=== PATIENT | female | born 1975 | race African-American/Black ===

== ENCOUNTER → 2021-09-28 10:00 | Outpatient (BNVA) | payer OTHER, SELFPAY | PROVIDERS: Visit Provider Internal Medicine Cardiovascular Disease ==

== ENCOUNTER → 2021-10-04 09:26 | Outpatient (REF) | payer OTHER, SELFPAY ==
--- NOTE | 2021-10-04 09:40 | CA_ITS ---
Acquisition Time: 2021-10-04 09:49:11 Total Exercise Time: 00:06:18 Test Indications: CHEST PAIN Medications: PROPANOLOL NORVASC Protocol: LISY Max HR: 166 BPM 95% of Pred: 174 BPM Max BP: 144/080 mmHG Max Work Load: 7.4 METS Exercise stress test with exercise 6 min 18 sec of Lisy protocol, with mild sob, no chest discomfort, with artifact during exercise with no noted arrythmia, with normotensive response to exercise, without EKG changes meeting criteria for ischemia. Test reviewed with Dr Morales. Referred By: Hu Morales Overread By: PAULA DOTSON
== END ==
LOC: HO.CARD 09:26
PROVIDERS: PCP Internal Medicine; Visit Provider Internal Medicine Cardiovascular Disease
DX: R07.9 Chest pain, unspecified (principal)
CPT/HCPCS: 93017

== ENCOUNTER → 2021-12-28 09:29 | Outpatient (REF) | payer OTHER, SELFPAY ==
--- NOTE | 2021-12-28 09:32 | CA_ITS ---
Transthoracic Echocardiogram Patient (Last, First, Middle): Dahiana Arevalo, Gender: Female Date of : 1975 Age: 46 Procedure Date: 12/28/2021 Procedure Type: Transthoracic Echocardiogram Location: OP Height: 157.48 cm Weight: 90.27 kg BSA: 1.91 m2 Heart Rate: bpm BP: 112 / 62 mmHg Mill Turner: Referring MD: Hu Morales MD Deputy General Counsel: Hu Morales MD Symptoms: R07.9 - Chest pain, unspecified Study Quality: Technically limited study with off axis apical vie ECG Rhythm: Sinus Conclusions: - Technically borderline study but overall within normal limits Findings Left Ventricle Normal left ventricular size, thickness, and systolic function. The visually estimated ejection fraction is between 60-65%. Diastolic function is indeterminate on the basis of available data. Right Ventricle Normal right ventricular cavity size and systolic function. Atria The left atrium is normal in size. There is no evidence of interatrial shunt. The right atrium was not well visualized. Aortic Valve Normal aortic valve structure and function. There is no aortic valve stenosis. There is no aortic valve regurgitation. Mitral Valve Normal mitral valve structure and function. There is trace mitral valve regurgitation. There is no mitral valve stenosis. Pulmonic Valve The pulmonic valve was not well visualized. Tricuspid Valve Likely normal tricuspid valve structure and function. There is trace tricuspid valve regurgitation. The right ventricular systolic pressure is normal. The right ventricular systolic pressure is 23 mmHg. Normal right atrial pressure. There is no evidence of pulmonary hypertension. Great Vessels All visible segments of the aorta are normal in size. The pulmonary artery was not well visualized. Venous The inferior vena cava is normal in size and collapses greater than 50% with inspiration. Pericardium/Pleural There is no evidence of pericardial effusion. Prior Study Comparison No prior study available for comparison. Measurements 2D Linear Measurements IVSd: 0.90 0.6-0.9/0.6-1.0 cm LVIDd: 4.55 3.9-5.3/4.2-5.9 cm LVIDd Index: 2.38 2.4-3.2/2.2-3.1 cm/m2 LVIDs: 3.08 2.0-3.6 cm LVPWd: 0.90 0.7-1.1 cm LA Diam: 3.70 2.7-3.8/3.0-4.0 cm LAIDs Index: 1.94 1.5-2.3 cm/m2 LV Mass: 168.70 67-162/88-224 g LV Mass Index: 88.33 43-95/49-115 g/m2 LVOT Diam: 2.00 3.0+(-)1.3 cm Mitral Valve MV Pk E: 0.52 MV PK A: 0.55 MV Decel Time: 170.00 E/A: 0.90 E'Lateral: 6.64 E'Medial: 5.33 E/E' Med: 9.80 E/E' Lat: 7.90 PHT: 50.00 MVA PHT: 4.40 Decel [place]: 3.07 Aortic Valve AoV Pk Isaac: 0.99 AoV Mn Isaac: 0.73 AoV VTI: 0.21 AoV Pk Grad: 4.00 Aov Mn Grad: 2.00 NELLY Cont.VTI: 1.85 LVOT LVOT Pk Isaac: 0.56 LVOT Mn Isaac: 0.37 LVOT VTI: 0.12 LVOT Pk Grad: 1.00 LVOT Mn Grad: 1.00 LVOT Diam: 2.00 LVOT Area: 3.14 Diastolic Function MV Pk E: 0.52 MV Pk A: 0.55 E/A: 0.90 E'Medial: 5.33 E/E' Med: 9.80 E' Laterial: 6.64 E/E' Lat: 7.90 Tricuspid Valve TR Pk Isaac: 2.24 TR Pk Grad: 20.00 RA Press: 3.00 RVSP: 23.00 Great Vessels Aorta Ao Asc: 2.80 2.1-3.4 cm Pulmonary Valve PV Pk Isaac: 1.00 Peak PV Grad: 4.00 Updated in Other Vendor System with Status of Final Hu Morales MD electronically signed on 12/28/2021 9:12:28 PM with status of Final
== END ==
LOC: HO.CARD 09:29
PROVIDERS: Visit Provider Internal Medicine Cardiovascular Disease
DX: R07.9 Chest pain, unspecified (principal); G47.33 Obstructive sleep apnea (adult) (pediatric)
CPT/HCPCS: 93306

== ENCOUNTER → 2022-02-14 15:28 | Outpatient (BNVA) | payer OTHER, SELFPAY | PROVIDERS: PCP Internal Medicine; Referring Provider Internal Medicine; Visit Provider Internal Medicine Cardiovascular Disease | DX: Z13.89 Encounter for screening for other disorder (principal) ==

== ENCOUNTER → 2023-05-29 16:11 | Outpatient (BNVA) | payer OTHER, SELFPAY | PROVIDERS: Visit Provider Physician Assistant ==

== ENCOUNTER 2023-05-29 17:23 | Emergency (ER) | payer OTHER, SELFPAY ==
--- NOTE | 2023-05-29 18:11 | ED_ITS ---
HPI - General Adult General Chief complaint: General Medical Stated complaint: high bp/sent from general surgery Time Seen by Provider: 05/29/23 18:11 Source: patient Mode of arrival: ambulatory Limitations: no limitations History of Present Illness HPI narrative: Patient with history of sleep apnea obesity came to the weight loss clinic and notice a blood pressure 203/101 patient denies any history of hypertension the past. Patient has gained about 10 lb in last 1 year does have sleep apnea history but not using machine. On arrival recheck blood pressure was 167/78 Related Data Home Medications Medication Instructions Recorded Confirmed cetirizine 10 mg tablet 10 mg PO DAILY 09/28/21 02/14/22 fluticasone propionate 50 spray intranasal 09/28/21 02/14/22 mcg/actuation nasal spray,suspension ibuprofen 600 mg tablet 600 mg PO TID 09/28/21 02/14/22 sumatriptan succinate 25 mg tablet mg PO 09/28/21 02/14/22 verapamil 120 mg tablet,extended 120 mg PO BEDTIME 05/29/23 05/29/23 release Allergies Allergy/AdvReac Type Severity Reaction Status Date / Time No Known Allergies Allergy Verified 05/29/23 18:24 Review of Systems Review of Systems: Yes all other systems are reviewed and are negative [facility] Past Medical History Medical History Obesity Obstructive sleep apnea Surgical History Hx of breast reduction, elective Hx of knee surgery Family History Family History Father Stroke Mother Breast cancer Social History Social History Alcohol intake: current Alcohol intake frequency: holidays/special occasions only Patient Tobacco Use Status: Never used Tobacco Smoked in Last 30 Days: No Use of substances other than those prescribed or required for medical reasons: No Advance Directives: No Advance Directives Information Provided: No Patient : No Physical Exam ED Vital Signs: Vital Signs - 24 hr 05/29/23 18:12 05/29/23 19:22 Temperature 98.4 F Pulse Rate 90 Respiratory Rate 16 Blood Pressure 167/78 H 157/71 H Pulse Oximetry 100 Oxygen Delivery Method Room Air BMI result Body Mass Index 42.8 Appearance: Alert. Oriented X3. No acute distress. Eyes: PERRLA, ENT: Pharynx normal. Oral Mucosa moist Neck: Normal inspection. Neck supple. CVS: Normal heart rate and rhythm. Pulses normal. Respiratory: No respiratory distress. Equal air entry bilateral, no wheezing/rales/rhonchi Abdomen: Soft and nontender. Bowel sounds are present, no mass palpable, no CVA tenderness Skin: Skin warm and dry. Normal skin color. Normal skin turgor. Extremities: No lower extremity edema. No calf tenderness Neuro: Oriented X 3. No motor deficit. No sensory deficit.No cerebellar signs , cranial nerves II-XII intact Medical Decision Making Medical Decision Making MDM Narrative: Patient with tansient mild hypertension with ANTOINE not using CPAP machine likely the cause for hypertension patient advised to follow with her PCP to have CPAP machine and sleep studies and try to reduce weight and decrease salt intake and keep an eye on her blood pressure should be less than 140/90 Lab Data MDM Lab Attestation statement: I reviewed the patient's lab results. 05/29/23 18:37 05/29/23 18:37 Labs: Lab Results 05/29/23 05/29/23 Range/Units 18:37 18:37 WBC 4.7 L (4.8-10.8) X10*3/uL RBC 4.23 (4.20-5.50) X10*6/uL Hgb 12.6 (12.0-16.0) g/dl Hct 39.3 (37.0-47.0) % MCV 92.9 (80.0-98.0) fL MCH 29.8 (27.0-33.0) pg MCHC 32.1 (31.0-35.0) g/dl RDW 12.7 (11.0-16.0) % Plt Count 251 (160-400) X10*3/uL MPV 10.1 (9.4-12.3) fL Immature Gran % (Auto) 0.2 (0.0-0.4) % Neut % (Auto) 53.0 (45-73) % Lymph % (Auto) 35.2 (20-40) % [place] % (Auto) 8.3 (2-11) % Eos % (Auto) 2.5 (0-4) % Baso % (Auto) 0.8 (0-2) % Lymph # (Auto) 1.7 (1.2-4.9) X10*3/uL [place] # (Auto) 0.4 (0.1-1.2) X10*3/uL Eos # (Auto) 0.1 (0.0-0.4) X10*3/uL Baso # (Auto) 0.0 (0.0-0.2) X10*3/uL Abs Immat Gran (auto) 0.01 (0.00-0.03) X10*3/uL Absolute Neuts (auto) 2.5 (2.0-8.3) x10*3/uL Absolute Nucleated RBC 0.000 (0.0-0.012) X10*3/uL Nucleated RBC % (auto) 0.0 (0.0-0.2) /100WBC Sodium 139 (135-145) mmol/L Potassium 3.8 (3.3-5.1) mmol/L Chloride 103 (96-108) mmol/L Carbon Dioxide 28 (22-29) mmol/L Anion Gap 12 (12-20) BUN 8 L (9-16) mg/dL Creatinine 0.76 (0.5-1.4) mg/dL Estim Creat Clear Calc 104.7 Estimated GFR > 60 Random Glucose 96 (60-115) mg/dL Calcium 9.2 (8.4-10.2) mg/dL Total Bilirubin 0.3 (0.0-1.0) mg/dL AST 23 (5-31) U/L ALT 22 (0-31) U/L Alkaline Phosphatase 63 (39-117) U/L Total Protein 7.6 (6.5-8.0) g/dL Albumin 4.1 (3.5-5.0) g/dL Discharge Plan Discharge Clinical Impression: Obstructive sleep apnea Patient Disposition: Home, Self-Care Instructions: Sleep Apnea (DC) Additional Instructions: Cause of elevated blood pressure likely is from sleep apnea Have sleep studies and CPAP machine at nighttime as advised Follow-up with your PCP Check blood pressure daily should be less than 140/90 Prescriptions: No Action verapamil 120 mg tablet extended release 120 mg PO BEDTIME fluticasone propionate 50 mcg/actuation spray,suspension intranasal ibuprofen 600 mg tablet 600 mg PO TID sumatriptan succinate 25 mg tablet PO cetirizine 10 mg tablet 10 mg PO DAILY Stand Alone Forms: Work/School Release Interventions: ED Discharge Assessment Last Done: 05/29/23 20:29 Discharge Date/Time: 05/29/23 20:30
[2023-05-29 18:12] VITALS: BP 167/78; PULSE 90; RESP 16; TEMP 36.9; O2SAT 100; BMI 42.8
[2023-05-29 18:41] LABS: MANUAL DIFF FLAG NO
[2023-05-29 19:08] LABS: Alanine Aminotransferase 22 U/L (0-31); Albumin Level 4.1 g/dL (3.5-5.0); Alkaline Phosphatase 63 U/L (39-117); Anion Gap 12 (12-20); Aspartate Amino Transferase 23 U/L (5-31); Basophils Percent Auto 0.8 % (0-2); Bilirubin Total 0.3 mg/dL (0.0-1.0); Blood Urea Nitrogen 8 mg/dL (9-16); Calcium 9.2 mg/dL (8.4-10.2); Carbon Dioxide 28 mmol/L (22-29); Chloride 103 mmol/L (96-108); Creatinine Clr Calc Pharmacy 104.7; Eosinophils Absolute Auto 0.1 X10*3/uL (0.0-0.4); Eosinophils Percent Auto 2.5 % (0-4); Estimated Glomerular Filt Rate > 60; Glucose Random 96 mg/dL (60-115); Hematocrit 39.3 % (37.0-47.0); Hemoglobin 12.6 g/dl (12.0-16.0); Imm Gran Abs Auto 0.01 X10*3/uL (0.00-0.03); Imm Gran Pct Auto 0.2 % (0.0-0.4); Lymphocytes Absolute Auto 1.7 X10*3/uL (1.2-4.9); Lymphocytes Percent Auto 35.2 % (20-40); Mean Corpuscular HGB Conc 32.1 g/dl (31.0-35.0); Mean Corpuscular Hemoglobin 29.8 pg (27.0-33.0); Mean Corpuscular Volume 92.9 fL (80.0-98.0); Mean Platelet Volume 10.1 fL (9.4-12.3); Monocytes Absolute Auto 0.4 X10*3/uL (0.1-1.2); Monocytes Percent Auto 8.3 % (2-11); Neutrophils Absolute Auto 2.5 x10*3/uL (2.0-8.3); Platelet Count 251 X10*3/uL (160-400); Potassium 3.8 mmol/L (3.3-5.1); Red Blood Count 4.23 X10*6/uL (4.20-5.50); Red Cell Distribution Width 12.7 % (11.0-16.0); Sodium 139 mmol/L (135-145); Total Protein 7.6 g/dL (6.5-8.0); White Blood Count 4.7 X10*3/uL (4.8-10.8)
[2023-05-29 19:22] VITALS: BP 157/71
== END 2023-05-29 20:30 | disposition home or self-care (01) ==
PROVIDERS: Emergency Provider Internal Medicine; PCP Internal Medicine
DX: G47.33 Obstructive sleep apnea (adult) (pediatric) (principal); E66.9 Obesity, unspecified; Z68.41 Body mass index [BMI] 40.0-44.9, adult
CPT/HCPCS: 36415; 80053; 85025; 99283; 99284

== ENCOUNTER 2023-06-19 15:13 | Outpatient (AMB) | payer OTHER, SELFPAY ==
--- NOTE | 2023-06-19 15:16 | MHC.OFFVISWM ---
Intake VS Expanded 06/19/23 15:23 Height 5 ft 2 in Weight 221 lb BMI 40.4 BP 142/72 H Blood Pressure Location Lt brachial Blood Pressure Position Sitting Pulse 93 Pulse Source Pulse Oximeter Temp 97.6 F Temperature Source Tympanic Pulse Oximetry 97 Oxygen Delivery Method Room Air Body Fat 92.0 Body Fat Percentage 41.6 Free Fat Mass 129.0 Muscle Mass 122.4 Visceral Mass 10.0 Water Mass 92.8 BMR 1,828 Intake Visit Reasons: (OV) [employer] Gastric Balloon Production Pattern Maker Required: No [employer]: [employer] offered & declined Allergies No Known Allergies Allergy (Verified 06/19/23 15:27) HPI HPI Comments History of Present Illness Details The patient is a 47-year-old woman who is here to discuss [employer] gastric balloon because of a personal history of obesity that is been worsening over the past 10 years. Patient notes that ever since she started working nights in 2013 she has had issues with progressive weight gain. She was enrolled in [facility] bariatric program where they recommended a gastric bypass, presumably due to her severe reflux, but the patient never attended the final class, received in advertisements regarding at the gastric balloon and wanted to explore this option. Patient reports she is currently at the heaviest weight of her adult life, presenting today with a weight of 221.0 lb/BMI 40.4. She has the comorbidities of obstructive sleep apnea and is not compliant with her CPAP as well as hypertension requiring 2 medications (verapamil & amlodipine). Patient was sent to the emergency department at her last visit in the beginning of May due to a blood pressure of 191/91 here in the office. The patient reports an extremely irregular schedule secondary to work noting that she does not have set wake and sleep hours since she works 22:00 to 07:00am. She works as a caregiver and also works nights at [employer] She wakes at:??variable d/t working nights? bed at: variable d/t working nights Breakfast: coffee, 2-3 cups Lunch: skips Dinner: bread, pasta, rice After dinner: denies snacking Other snacks: denied Liquids: water, denies SSB Alcohol intake: ???rare? nicotine: ?denied??? marijuana:???denied?drugs:?denied? caffeine: 3-4/day Exercise: none; pt report chronic lower back & left knee problems Last mammogram: Last pap smear: control method: None, pt declines contraceptive Colonoscopy: JACK: 0 ESS: 3 GERD: 14 not satisfied with GERD QOL: 76 PFSH Medical History Obesity Obstructive sleep apnea Surgical History Hx of breast reduction, elective Hx of knee surgery Family History Father Stroke Mother Breast cancer Social History Alcohol intake: current Alcohol intake frequency: holidays/special occasions only Patient Tobacco Use Status: Never used Tobacco Review of Systems Const All systems reviewed & are unremarkable except as noted in HPI and below Physical Exam Vital Signs: Last Vital Signs Temp 97.6 F 06/19/23 15:23 Pulse 93 06/19/23 15:23 BP 142/72 H 06/19/23 15:23 Pulse Ox 97 06/19/23 15:23 Oxygen Delivery Method Room Air 06/19/23 15:23 BMI result Body Mass Index 40.4 On exam she is nontoxic Sclera anicteric Mallampati class 4 Heart is regular, normal S1-S2 Lungs are clear and equal anteriorly Abdomen is obese but soft and nontender Results Reviewed Results Reviewed: Labs 05/29/23 wbc 4.7 Hb 12.6 N/N Plts 251K BUN 8, Cr 0.76 lytes & LFTs WNL Assessment & Plan Assessment & Plan (1) BMI 40.0-44.9, adult: Code(s): Z68.41 - Body mass index [BMI] 40.0-44.9, adult (2) Obstructive sleep apnea: Code(s): G47.33 - Obstructive sleep apnea (adult) (pediatric) (3) HTN (hypertension): Code(s): I10 - Essential (primary) hypertension (4) GERD (gastroesophageal reflux disease): Code(s): K21.9 - Gastro-esophageal reflux disease without esophagitis (5) Left knee pain: Code(s): M25.562 - Pain in left knee (6) Lower back pain: Code(s): M54.50 - Low back pain, unspecified Plan Using a teaching family preservation officer, I reviewed normal anatomy and physiology regarding digestion and reviewed the importance of a high-protein, high-fiber and low-fat/low-carbohydrate diet as part of a healthy diet promoting weight loss. The importance of increased activity or exercise was also reviewed and handouts regarding sit to be fit and other exercise options were provided to the patient Patient stated that no one explained this to her before. Using the [employer] teaching model we discussed the balloon, risks of reflux, the importance of diet and exercise. The patient requested handouts regarding our recommended diet, but voiced concerns over worsening of her reflux from the balloon and wished to hold off on any intervention at this time. She requested a follow-up visit in 3 months to see whether not she could change from her current high carbohydrate diet. She declined having any labs or diagnostic imaging done at this time and stated that she would decide whether not she wants these studies done at her follow-up visit in 3 months. Coding Level of Care Code New Pt Level 4 (25139) Diagnoses BMI 40.0-44.9, adult Z68.41 Obstructive sleep apnea G47.33 HTN (hypertension) I10 GERD (gastroesophageal reflux disease) K21.9 Left knee pain M25.562 Lower back pain M54.50
[2023-06-19 15:23] VITALS: BP 142/72; PULSE 93; TEMP 36.4; O2SAT 97; BMI 40.4
== END 2023-06-19 16:16 | disposition home or self-care (01) ==
PROVIDERS: Visit Provider Surgery
DX: E66.01 Morbid (severe) obesity due to excess calories (principal); Z68.41 Body mass index [BMI] 40.0-44.9, adult; G47.33 Obstructive sleep apnea (adult) (pediatric); I10 Essential (primary) hypertension; K21.9 Gastro-esophageal reflux disease without esophagitis; M25.562 Pain in left knee; M54.50 Low back pain, unspecified
CPT/HCPCS: 99204

== ENCOUNTER → 2023-06-19 15:13 | Outpatient (BNVA) | payer OTHER, SELFPAY | PROVIDERS: Visit Provider Surgery ==

== ENCOUNTER 2023-12-26 11:06 | Outpatient (AMB) | payer OTHER, SELFPAY ==
--- NOTE | 2023-12-26 11:10 | MHC.OFFVIS ---
Intake Vital Signs 12/26/23 11:13 Height 5 ft 2 in Weight 226 lb BMI 41.3 BP 120/82 Blood Pressure Location Lt brachial Position Sitting Pulse 82 Pulse Source Monitor Intake Visit Reasons: 2 yr follow up Intake Note: 2 year follow up with EKG pre op clearance Allergies No Known Allergies Allergy (Verified 06/19/23 15:27) Medication List - Last Reconciled 12/26/23 by Hu Morales MD amlodipine 10 mg PO DAILY cetirizine 10 mg PO DAILY fluticasone propionate 50 mcg/actuation sprays intranasal ibuprofen 600 mg PO TID sumatriptan succinate mg PO verapamil ER 120 mg PO BEDTIME HPI HPI Comments History of Present Illness Details Dahiana comes for follow-up, for preoperative cardiovascular risk stratification for bariatric surgery. She has been trying to lose weight but has been unsuccessful. She has currently not using CPAP therapy. She also said for the last 5 days she has not been using her antihypertensives for unclear reasons. She says she wants to try to see how her blood pressures. Today the blood pressure is optimized. For some reason she is both on verapamil and amlodipine and this was confirmed with her. She denies any new symptoms of exertional chest pain. Continues to exertional shortness of breath. Denies any heart failure symptoms. [facility] Medical History Obesity Obstructive sleep apnea Surgical History Hx of knee surgery Hx of breast reduction, elective Family History Father Stroke Mother Breast cancer Social History Alcohol intake: current Alcohol intake frequency: holidays/special occasions only Patient Tobacco Use Status: Never used Tobacco Review of Systems Const Denies chills, Denies fatigue, Denies fever(s), Denies frequent falls, Denies weakness, Denies weight gain and Denies weight loss ENT Denies dizziness Card Denies chest pain, Denies leg edema, Denies lightheadedness, Denies palpitations, Denies dyspnea, Denies dyspnea on exertion, Denies orthopnea and Denies other (loss of consciousness) Resp Denies cough, Denies dyspnea and Denies dyspnea on exertion GI Denies hematochezia and Denies change in stool character Musc Denies abnormal gait, Denies muscle weakness, Denies numbness, Denies radiating pain into limb and Denies tingling Neuro Denies Abnormal speech present, Denies abnormal gait, Denies dizziness, Denies frequent falls, Denies numbness, Denies tingling and Denies weakness Endo Denies fatigue and Denies palpitations Physical Exam Vital Signs: Last Vital Signs Pulse 82 12/26/23 11:13 BP 120/82 12/26/23 11:13 BMI result Body Mass Index 41.3 Const General: cooperative, comfortable, no acute distress, alert, awake, Physically active and well groomed Nutritional Appearance: obese Orientation/consciousness: patient oriented x3 Limitations: no limitations Neck Neck: Yes trachea midline, Yes supple and Yes no JVD Chest Chest palpation & inspection: normal inspection of the chest Resp Effort & Inspection: normal respiratory effort Auscultation: clear to auscultation bilaterally Cardio Jugular venous distension: no JVD Palpation: normal PMI Rate: regular rate Rhythm: regular rhythm Heart sounds: S1 normal heart sound present, S2 normal heart sound present, no click, no gallops, no murmurs and no rubs GI Inspection: Yes obesity Auscultation: normal bowel sounds Skin General skin exam: no rashes or lesions noted Neuro General: patient oriented x3 and no focal motor deficits Speech: No Abnormal speech present Extrem General: Yes no clubbing, cyanosis or edema Psych Appearance: grossly normal Assessment & Plan Assessment & Plan (1) Preoperative cardiovascular examination: Code(s): Z01.810 - Encounter for preprocedural cardiovascular examination Plan: Preoperative cardiovascular risk stratification this middle-aged woman with history of hypertension and morbid obesity to undergo bariatric surgery which is considered intermediate risk surgery. She would prior workup within the last 2 years which have been within normal limits and she has no new current concerning symptoms. No signs or symptoms of heart failure. Blood pressure is well optimized despite she not being on medication for the last few days. She has not using a CPAP therapy. I think she will benefit from weight reduction surgery for long-term risk factor modification. She is optimized with low to intermediate risk for perioperative cardiovascular morbidity mortality. (2) HTN (hypertension): Code(s): I10 - Essential (primary) hypertension Plan: Hypertension, on 2 different calcium channel blockers advised her to stop amlodipine and continue verapamil therapy. Importance of treatment for sleep apnea was discussed as well. Continue participate in aggressive weight loss program I think she will benefit from bariatric surgery with control for blood pressure long-term. Low-salt diet was discussed advised to monitor blood pressure at home maintain a log. Will follow up in the clinic in 1 year's time, sooner p.r.n.. Thank you for allowing me to partake in the care Coding Level of Care Code Est Pt Level 4 (26668) Diagnoses Preoperative cardiovascular examination Z01.810 HTN (hypertension) I10
[2023-12-26 11:13] VITALS: BP 120/82; PULSE 82; BMI 41.3
== END 2023-12-26 11:34 | disposition home or self-care (01) ==
PROVIDERS: Visit Provider Internal Medicine Cardiovascular Disease
DX: Z01.810 Encounter for preprocedural cardiovascular examination (principal); I10 Essential (primary) hypertension
CPT/HCPCS: 99214

== ENCOUNTER → 2023-12-26 11:06 | Outpatient (BNVA) | payer OTHER, SELFPAY | PROVIDERS: Visit Provider Internal Medicine Cardiovascular Disease ==

== ENCOUNTER 2025-02-19 13:51 | Outpatient (AMB) | payer OTHER, SELFPAY ==
[2025-02-19 14:11] VITALS: BP 144/88; PULSE 76; BMI 35.9
--- NOTE | 2025-02-19 14:11 | MHC.OFFVIS ---
Vital Signs 02/19/25 14:11 Height 5 ft 2 in Weight 196 lb 3.382 oz BMI 35.9 BP 144/88 H Blood Pressure Location Lt brachial Position Sitting Pulse 76 Intake Visit Reasons: 1 yr f/up Intake Note: 1 year follow-up with ekg feeling good Provider Contracting Consultant Required: No Allergies No Known Allergies Allergy (Verified 06/19/23 15:27) Medication List - Last Reconciled 02/19/25 by Hu Morales MD atorvastatin 10 mg PO DAILY cetirizine 10 mg PO DAILY fluticasone propionate 50 mcg/actuation sprays intranasal ibuprofen 600 mg PO TID losartan 25 mg PO DAILY sumatriptan succinate mg PO verapamil ER 120 mg PO BEDTIME HPI Comments Details: Dahiana comes for follow-up of hypertension. She underwent recently hysterectomy for fibroid was noted to have significantly elevated blood pressure. Following that she was started on losartan 25 mg and was advised to take verapamil in the morning losartan nighttime. Comes today and blood pressure is still borderline mildly elevated. At home the blood pressure check this morning was 137/87. She was no obvious symptoms related to blood pressure. Denies any headaches, chest pain. No flushed feeling. Denies any shortness of breath. She said about a year ago she underwent a bariatric surgery has lost about 50 lb. She is currently not using any CPAP therapy. She does not know if she has any residual sleep apnea and has not been taking tested for the same. She overall feels fine although does not exercise. [facility] Medical History Obesity Obstructive sleep apnea Surgical History Hx of knee surgery Hx of breast reduction, elective Family History Father Stroke Mother Breast cancer Social History Alcohol intake: current Alcohol intake frequency: holidays/special occasions only Patient Tobacco Use Status: Never used Tobacco Review of Systems Const Denies chills, Denies fatigue, Denies fever(s), Denies frequent falls, Denies weakness, Denies weight gain and Denies weight loss ENT Denies dizziness Card Denies chest pain, Denies leg edema, Denies lightheadedness, Denies palpitations, Denies dyspnea, Denies dyspnea on exertion, Denies orthopnea and Denies other (loss of consciousness) Resp Denies cough, Denies dyspnea and Denies dyspnea on exertion GI Denies hematochezia and Denies change in stool character Musc Denies abnormal gait, Denies muscle weakness, Denies numbness, Denies radiating pain into limb and Denies tingling Neuro Denies Abnormal speech present, Denies abnormal gait, Denies dizziness, Denies frequent falls, Denies numbness, Denies tingling and Denies weakness Endo Denies fatigue and Denies palpitations Physical Exam Vital Signs: Last Vital Signs Pulse 76 02/19/25 14:11 BP 144/88 H 02/19/25 14:11 BMI result Body Mass Index 35.9 Const General: cooperative, comfortable, no acute distress, alert, awake, Physically active and well groomed Nutritional Appearance: obese Orientation/consciousness: patient oriented x3 Limitations: no limitations Neck Neck: Yes trachea midline, Yes supple and Yes no JVD Chest Chest palpation & inspection: normal inspection of the chest Resp Effort & Inspection: normal respiratory effort Auscultation: clear to auscultation bilaterally Cardio Jugular venous distension: no JVD Palpation: normal PMI Rate: regular rate Rhythm: regular rhythm Heart sounds: S1 normal heart sound present, S2 normal heart sound present, no click, no gallops, no murmurs and no rubs GI Inspection: Yes obesity Auscultation: normal bowel sounds Skin General skin exam: no rashes or lesions noted Neuro General: patient oriented x3 and no focal motor deficits Speech: No Abnormal speech present Extrem General: Yes no clubbing, cyanosis or edema Psych Appearance: grossly normal Office Procedures EKG Details: EKG shows normal sinus rhythm normal EKG at 76 beats per minute 91552-[id number], Complete Assessment & Plan Assessment & Plan (1) HTN (hypertension): Code(s): I10 - Essential (primary) hypertension Category: Medical Plan: Hypertension which was recently noted during surgery to be significantly elevated, started on 2nd agent for blood pressure control. She was not maximize the 1st agent with verapamil and has enough room with heart rate to maximize the therapy 1st. I would rather increase 1 drug to improve compliance and then if maximized and/or not tolerated would switch to a different agent. For now I have advised her to hold losartan therapy and increase verapamil to 240 mg daily. Also uncorrected sleep apnea could be contributing to a blood pressure and this was discussed with her. Suggest a home sleep study. Encouraged to continue to participate in regular physical activity, salt reduction diet and weight loss program. Follow up in the clinic in 2 weeks for blood pressure check in 1 year with me. Orders: Orders RT home sleep study Today G47.33 - Obstructive sleep apnea (adult) (pediatric) Medications: New verapamil ER 240 mg PO DAILY 30 caps 5RF Coding Level of Care Code Est Pt Level 3 (81427) Complex EM visit Add On G2211 Diagnoses HTN (hypertension) I10 CPT Codes EKG - CPT: 82536-[id number], Complete ([id number])
--- OUTSIDE RECORDS SUMMARY | 2025-02-19 15:06 | XMS_ITS ---
Author Name [facility] Organization Unknown History of Medication Use Medication Directions Dispensed Refills Start Date End Date Stat ibuprofen 600 MG tablet Take 1 tablet (600 mg total) by mouth every 6 (six) hours as needed for pain. active Problems Problem Status Onset Date Problem Type Date of Resolution Source Migraine without aura and without status migrainosus, not intractable active EncounterDiagnosisAct CTT HNEMG Headache active EncounterDiagnosisAct CTTHNEMG
--- OUTSIDE RECORDS SUMMARY | 2025-02-19 15:06 | XMS_ITS | Encounter Summary ---
Author Organization [facility] [place] [address] Care Team Providers Care Field Service Engineer Name Role Phone Devorah Singer MD Primary Care Provider [phone] Reason for Visit * Reason Onset Date Comments Medication 02/17/2025 Post-op Problem 02/17/2025 Encounter Details Date Type Department Care Team (Late st Contact Info) Description 02/17/2025 Telephone Obstetrics and Gynecology - [address] [phone] Aisha Ramos MD [address] [place], [place] Medication; Post-op Problem Social History Tobacco Use Types Packs/Day Years Used Date Smoking Tobacco: Never Smokeless Tobacco: Never Alcohol Use Standard Drinks/Week Comments Yes 0 (1 standard drink = 0.6 oz pur e alcohol) RARE Interpersonal Safety Answer Date Record ed Physical Abuse 02/05/2025 Verbal Abuse 02/05/2025 Comments No Sex and Gender Information Value Date Recorded Sex Assigned at Female 02/04/2025 12:25 PM EDT Legal Sex Female 9:54 AM EST Gender Identity Female 02/04/2025 12:25 PM EDT Sexual Orientation Straight 02/04/2025 12 :25 PM EDT Travel History Travel Start Travel End [place] 01/05/2025 02/05/2025 documented as of this encounter Progress Notes * Juana Phillips RN - 02/17/2025 1:07 PM EDT Called patient. She reports that she is having stabbing pain for the past 3 days since she finishedher pain medication. Advised her that they do not generally give narcotics for that long. She should take tylenol, if the pain is severe she may need to be seen to see what is causing this pain. Telephonic Rn her post op appt for 1 week sooner. * Katie Wade - 02/17/2025 9:48 AM EDT Chief Complaint/problem: patient had hysterectomy surgery 02/[address] ramos ,states she has pain and skin issues How long has the patient had this problem? Pt???s BRIM STRETCHER provider: Aisha Ramos MD Last menstrual period (LMP) or EDC (due date): na documented in this encounter Plan of Treatment Upcoming Encounters Date Type Department Care Team (Late st Contact Info) Description 02/26/2025 3:00 PM EDT Office Visit Obstetrics and Gynecology - [address] [phone] Mayra Steele PA [address] [place] [phone] 03/15/2025 1:00 PM EDT Appointment Radiology Department - [address] [phone] 05/06/2025 4:30 PM EDT Office Visit Adult Medicine [place] - [address] [phone] Devorah Singer MD [address] [place] [address] documented as of this encounter Visit Diagnoses Not on filedocumented in this encounter Care Teams Field Service Engineer Relationship Specialty Start Date End Date Devorah Singer MD [address] [place] [address] PCP - General 02/13/24 documented as of this encounter
--- OUTSIDE RECORDS SUMMARY | 2025-02-19 15:07 | XMS_ITS | Clinical Summary ---
Author Organization [facility] Address [address] [place] [address] Care Team Providers Care Manager Neonatal Name Role Phone Devorah Singer MD Primary Care Provider Allergies Active Allergy Reactions Criticality Noted Date Comments Seasonal Itching,Photosensitivity 02/27/2013 Medications Medication Sig Dispensed Refills Start Date End Date Status ibuprofen 600 MG tablet Take 1 tablet (600 mg total) by mouth every 6 (six) hours as needed for pain. 0 Active Magnesium 400 MG CAPS Take 400 mg by mouth daily. 30 capsule 3 08/15/2023 Active amitriptyline (ELAVIL) tablet 25 mg TAKE 1 TABLET (25 MG TOTAL) BY MOUTH EVERY NIGHT AT BEDTIME FOR 30 DAYS. 0 01/11/2024 Active atorvastatin (LIPITOR) tablet 10 mg Take 1 tablet (10 mg total) by mouth daily. 0 01/16/2024 Active Active Problems No known active problems Social History Tobacco Use Types Packs/Day Years Used Date Smoking Tobacco: Never Assessed Sex and Gender Information Value Date Recorded Sex Assigned at Female 06/22/2023 4:37 PM EDT Gender Identity Not on file Sexual Orientation Not on file Job Start Date Occupation Industry Not on file Not on file Not on file Last Filed Vital Signs Vital Sign Reading Time Taken Comments Blood Pressure 137/60 02/28/2024 3:53 PM EDT Pulse 86 02/28/2024 3:53 PM EDT Temperature 36.5 ??C (97.7 ??F) 02/28/2024 3:53 PM ED T Respiratory Rate - - Oxygen Saturation 97% 02/28/2024 3:53 PM EDT Inhaled Oxygen Concentration - - Weight 101.4 kg (223 lb 9.6 oz) 02/28/2024 3:53 PM EDT Height 157.5 cm (5' 2 ) 02/28/2024 3:53 PM EDT Body Mass Index 40.9 02/28/2024 3:53 PM EDT Plan of Treatment Health Maintenance Due Date Last Done Comments Hepatitis B Vaccines (1 of 3 - 3-dose series) 1975 Hepatitis C Screening 1975 Pneumococcal Vaccine (1 of 2 - PCV) 1981 Depression Screening 1987 BMI Counseling 1993 Preventative Health Evaluation 1993 Cervical Cancer Screening (Pap Smear) 1996 Colon Cancer Screening (Colonoscopy) 2020 DTap / Tdap / Td (2 - Td or Tdap) 06/25/2023 06/25/2013 COVID-19 Vaccine ( season) 2024 04/10/2022, 11/26/2020, 11/02/2020 Influenza Vaccine (#1) 2024 , 08/18/2020, 09/05/2018, Additional history exists RSV Ped < 20 months Aged Out No longe r eligible based on patient's age to complete this topic Insurance Payer Benefit Plan / Group Subscriber ID Effective Dates Phone Address [facility] [id number] 2023-Prese nt [address] [facility] [address] [place] [address] [place] [id number] 2023-Pres e nt [address] [place] [address] Medicaid Care Teams Manager Neonatal Relationship Specialty Start Date End Date Devorah Singer MD [address] [place] [address] PCP - General Internal Medicine 02/13/24
--- OUTSIDE RECORDS SUMMARY | 2025-02-19 15:07 | XMS_ITS | Encounter Summary ---
Author Organization [facility] [place] [address] Care Team Providers Care Regulatory Affairs Coordinator Name Role Phone Devorah Singer MD Primary Care Provider Reason for Visit * Reason Onset Date Comments Forms/questionnaires 02/07/2025 Encounter Details Date Type Department Care Team (Late st Contact Info) Description 02/07/2025 Telephone Obstetrics and Gynecology [address] [phone] Aisha Escobedo MD [address] [place], [place] Forms/questionnaires Social History Tobacco Use Types Packs/Day Years [...] EDT Travel History Travel Start Travel End [place] 01/05/2025 02/05/2025 documented as of this encounter Progress Notes * Yumiko Saavedra MA - 02/17/2025 1:07 PM EDT Form is completed. Form is faxed and a copy was sent to scanning * Yumiko Saavedra MA - 02/14/2025 3:08 PM EDT Form is completed awaiting for providers signature Aisha Escobedo MD * Katie Wade - 02/07/2025 4:16 PM EDT FORMS TO BE COMPLETED IN THE PRACTICE: Type of form: Bandwidth Release of information form ( all sections) has been completed and Signed. No For what medical problem does the patient need this form completed? surgery Is patients name on the form? Yes Is the patients portion (demographics) of the form completed? No Did the patient sign the form? No Which provider is form to be completed by? Aisha Escobedo MD Patient requesting the form be: Fax to other office/MD at [phone] was sent in by [facility] [employer] If form is not to be picked up by patient has patient been informed that RELEASE OF INFO form must be signed by them for alternate person to sampler pickup form? No Patient has been informed that completion will be in 7-10 business days: No documented in this encounter Plan of Treatment Upcoming Encounters Date Type Department Care Team (Late st Contact Info) Description 02/26/2025 3:00 PM EDT Office Visit Obstetrics and Gynecology - [address] [phone] Mayra Steele PA [address] [place] [phone] 03/15/2025 1:00 PM EDT Appointment Radiology Department - [address] [phone] 05/06/2025 4:30 PM EDT Office Visit Adult Medicine [facility] [address] [place] [address] Devorah Singer MD [address] [place] [address] documented as of this encounter Visit Diagnoses Not on filedocumented in this encounter Care Teams Regulatory Affairs Coordinator Relationship Specialty Start Date End Date Devorah Singer MD [address] [place] [address] PCP - General 02/13/24 documented as of this encounter
--- OUTSIDE RECORDS SUMMARY | 2025-02-19 15:07 | XMS_ITS | Clinical Summary ---
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 LAB HEMETOLOGY METHOD 02/05/2025 9:51 AM [facility] MCV 94.4 79.0 - 98.0 FL LAB HEMETOLOGY METHOD 02/05/2025 9:51 AM [facility] MCH 31.4 27.0 - 32.0 pcg LAB HEMETOLOGY METHOD 02/05/2025 9:51 AM [facility] MCHC 33.2 32.0 - 37.0 g/dL LAB HEMETOLOGY METHOD 02/05/2025 9:51 AM [facility] RDW 12.5 11.0 - 15.0 % LAB HEMETOLOGY METHOD 02/05/2025 9:51 AM [facility] Platelets 245 130 - 400 K/mcL LAB HEMETOLOGY METHOD 02/05/2025 9:51 AM [facility] MPV 9.7 7.0 - 11.0 FL LAB HEMETOLOGY METHOD 02/05/2025 9:51 AM [facility] NRBC 0.0 <1.0 % LAB HEMETOLOGY METHOD 02/05/2025 9:51 AM [facility] NRBC Absolute 0.00 <0.10 K/mcL LAB HEMETOLOGY METHOD 02/05/2025 9:51 AM [facility] Blood Venous blood specimen / Unknown Venipuncture / Unknown 02/05/2025 9:19 AM EDT 02/05/2025 9:46 AM EDT us Aisha Escobedo MD LAB BLOOD ORDERABLES Final Result Performing Organization Address [facility] de Phone Number [facility] [address] [place] [address], [place] [phone] * Type and screen (02/05/2025 9:19 AM EDT) ABO Group O 02/05/2025 10:51 AM EDT [facility] Rh Type Positive 02/05/2025 10:51 AM EDT [facility] Antibody Screen Negative 02/05/2025 10:51 AM EDT [facility] Blood Venous blood specimen / Unknown Venipuncture / Unknown 02/05/2025 9:19 AM EDT 02/05/2025 9:46 AM EDT us Aisha Escobedo MD LAB BLOOD BANK TEST ORDERAB LES Final Result Performing Organization Address [facility] Co de Phone Number [facility] [address] [place] [address], [place] [phone] * ECG 12 lead (01/23/2025 1:37 PM EDT) Narrative Devorah Singer MD - 01/23/2025 1:37 PM EDT Completed by ANNE Milton us Devorah Singer MD ECG ORDERABLES Final Resul t * Basic metabolic panel (01/14/2025 12:40 PM EDT) Sodium 141 133 - 145 mmol/L LAB CHEMISTRY METHOD 01/14/2025 4:53 PM EDT [facility] Potassium 4.2 3.5 - 5.5 mmol/L LAB CHEMISTRY METHOD 01/14/2025 4:53 PM [facility] Chloride 105 96 - 110 mmol/L LAB CHEMISTRY METHOD 01/14/2025 4:53 PM [facility] CO2 29 21 - 32 mmol/L LAB CHEMISTRY METHOD 01/14/2025 4:53 PM [facility] Anion Gap 7 3 - 11 LAB CHEMISTRY METHOD 01/14/2025 4:53 PM T [facility] Glucose 84 70 - 100 mg/dL LAB CHEMISTRY METHOD 01/14/2025 4:53 PM [facility] BUN 10 5 - 25 mg/dL LAB CHEMISTRY METHOD 01/14/2025 4:53 PM [facility] Creatinine 0.73 0.50 - 1.10 mg/dL LAB CHEMISTRY METHOD 01/14/2025 4:53 PM [facility] eGFR 101 >=60 mL/min/1. 73m2 LAB CHEMISTRY METHOD 01/14/2025 4:53 PM [facility] Comment:Calculation based on the??Chronic Kidney Disease Epidemiology Collaboration (CKD-EPI) equation refit??without adjustment for race. BUN/Creatinine Ratio 13.7 LAB CHEMISTRY METHOD 01/14/2025 4:53 PM [facility] Calcium 9.7 8.5 - 10.5 mg/dL LAB CHEMISTRY METHOD 01/14/2025 4:53 PM T [facility] Blood Venous blood specimen / Unknown Venipuncture / Unknown 01/14/2025 12:40 PM EDT 01/14/2025 12:40 PM EDT us Aisha Escobedo MD LAB BLOOD ORDERABLES Final Result [facility] [address] [place] [address], [place] [phone] * (ABNORMAL) Lipid panel with reflex to direct LDL (12/25/2024 4:49 PM EST) Cholesterol 224(H) 0 - 200 mg/dL LAB CHEMISTRY METHOD 12/25/2024 8:09 PM [facility] Triglycerides 120 0 - 150 mg/dL LAB CHEMISTRY METHOD 12/25/2024 8:09 PM [facility] HDL 57 >=40 mg/dL LAB CHEMISTRY METHOD 12/25/2024 8:09 PM [facility] LDL Calculated 143(H) 0 - 100 mg/dL LAB CHEMISTRY METHOD 12/25/2024 8:09 PM [facility] VLDL Cholesterol Soren 24 mg/dL LAB CHEMISTRY METHOD 12/25/2024 8:09 PM [facility] Non HDL Chol. (LDL+VLDL) 167(H) <145 mg/dL LAB CHEMISTRY METHOD 12/25/2024 8:09 PM [facility] Chol/HDL Ratio 3.9 0.0 - 4.4 LAB CHEMISTRY METHOD 12/25/2024 8:09 PM [facility] Blood Venous blood specimen / Unknown Venipuncture / Unknown 12/25/2024 4:49 PM EST 12/25/2024 4:49 PM EST us Devorah Singer MD LAB BLOOD ORDERABLES Final Result [facility] [address] [place] [address], * SCREENING MAMMOGRAPHY BI 2-VIEW BREAST INC CAD (02/24/2024 1:21 PM EDT) Anatomical Region Laterality Modality Radiographic Cinthia ging 01/16/2024 8:30 AM EDT Narrative 02/26/2024 12:27 PM EDT This is a summary report. The complete report is available in the patient's medical record. If you cannot access the medical record, please contact the sending organization for a detailed fax or copy. Full field digital screening 2D C views and tomosynthesis mammography, reviewed with CAD and compared to previous. The breast tissue is heterogeneously dense, limiting sensitivity. No suspicious mass, architectural distortion or suspicious calcifications are identified. IMPRESSION: : Dense breast tissue, limiting the sensitivity of mammography. No mammographic evidence of malignancy. BIRADS 1-Negative; N. 5 year breast cancer risk assessment 1.3 % Lifetime breast cancer risk assessment 10.8 % Breast cancer risk category Low (<15%) Procedure Note Mable Christiansen MD - 06/10/2024 This is a summary report. The complete report is available in thepatient's medical record. If you cannot access the medical record, pleasecontact the sending organization for a detailed fax or copy. Full field digital screening 2D C views and tomosynthesis mammography,reviewed with CAD and compared to previous. The breast tissue isheterogeneously dense, limiting sensitivity. No suspicious mass,architectural distortion or suspicious calcifications are identified. IMPRESSION: : Dense breast tissue, limiting the sensitivity of mammography. Nomammographic evidence of malignancy. BIRADS 1-Negative; N. 5 year breast cancer risk assessment 1.3 % Lifetime breast cancer risk assessment 10.8 % Breast cancer risk category Low (<15%) Result [facility] Devorah Singer MD IMG XR PROCEDURES Final Res ult * Cervical Cancer Screening: HPV (09/28/2021) [facility] Cervical Cancer Screening: HPV abstracted ,negative Result [facility] Historical Provider HEALTH MAINTENANCE Final Result * Hepatitis C Screening (01/02/2018) [facility] Hepatitis C Screening abstracted Historical Provider HEALTH MAINTENANCE Final Result * HIV Screening (12/06/2012) [facility] HIV Screening abstracted Result [facility] Historical Provider HEALTH MAINTENANCE Final Result from Last 3 Months or Most Recently Relevant to Health Maintenance Insurance [facility] Advance Directives * Full Code - Default (Latest Code Status on File) Date Activated Date Inactivated Comments 02/05/2025 9:04 AM 02/07/2025 8:03 PM This is orde r is used when code status has not been discussed with the patient, or code status is otherwise unknown/unconfirmed To update the patient's code status, place a code status order. Do not modify or discontinue any currently active code status orders. Care Teams Director Veterinary Relationship Specialty Start Date End Date Devorah Singer MD [address] [place] [id number] PCP - General 02/13/24
--- OUTSIDE RECORDS SUMMARY | 2025-02-19 15:07 | XMS_ITS | Encounter Summary ---
Author Organization [facility] Address [address] [place] [address] Care Team Providers Care Methods Examiner Name Role Phone Devorah Singer MD Primary Care Provider [phone] Reason for Visit * Reason Onset Date Comments Prior Auth 01/27/2025 Encounter Details Date Type Department Care Team (Late st Contact Info) Description 01/27/2025 Telephone Adult Medicine [facility] [address] [place] [phone] Devorah Singer MD [address] [place], [place] [phone] Prior Auth Social History Tobacco Use Types Packs/Day Years Used Date Smoking Tobacco: Never Smokeless Tobacco: Never Alcohol Use Standard Drinks/Week Comments Yes 0 (1 standard drink = 0.6 oz pur e alcohol) Comments No Sex and Gender Information Value Date Recorded Sex Assigned at Female 02/04/2025 12:25 PM EDT Legal Sex Female 9:54 AM EST Gender Identity Female 02/04/2025 12:25 PM EDT Sexual Orientation Straight 02/04/2025 12 :25 PM EDT Travel History Travel Start Travel End [place] 01/05/2025 02/05/2025 documented as of this encounter Progress Notes * Radha Purvis [place] - 02/06/2025 12:02 PM EDT Prior authorization for the lidocaine patch was completed today on [facility] Dx code M54.9 chronic back pain Office notes uploaded to [facility] * Gennaro Aldana - 01/27/2025 3:12 PM EDT ,Prior Authorization for Medication-do not complete and send this encounter unless you have the faxfrom the pharmacy. Is this a Cover My Meds request: Yes -- Wade Code [id number] Name of Medication Lidocaine Patches Dose of Medication 5% What is the RX # from the faxed refill? How does patient take this med? Apply 1 patch topically 1 (one) time each day if needed for moderate pain (PAIN). Apply to painful area 12 hours per day, remove for 12 hours. What Pharmacy did the fax come from: [facility] Pharmacy fax #: [phone] [employer] Information from fax: What Prescription Plan does the patient have? BIN/PCN if applicable: Cardholder ID: Person Code: Relationship Code: Help desk phone: documented in this encounter Plan of Treatment Upcoming Encounters Date Type Department Care Team (Late st Contact Info) Description 02/26/2025 3:00 PM EDT Office Visit Obstetrics and Gynecology - [address] [phone] Mayra Steele PA [address] [place] [address] 03/15/2025 1:00 PM EDT Appointment Radiology Department - [address] [phone] 05/06/2025 4:30 PM EDT Office Visit Adult Medicine [place] - [address] [phone] Devorah Singer MD [address] [place] [address] documented as of this encounter Visit Diagnoses Not on filedocumented in this encounter Care Teams Methods Examiner Relationship Specialty Start Date End Date Devorah Singer MD [address] [place] [address] PCP - General 02/13/24 documented as of this encounter
--- OUTSIDE RECORDS SUMMARY | 2025-02-19 15:07 | XMS_ITS | Data Portability ---
Author Organization [facility], [id number] Address [address] [place] [address] Assessment No assessment recorded. Plan of Treatment Reminders Order Date Submit Date Provider Last Modified By Organization Details Last Modified Time Details Appointments None record ed. Lab None record ed. Referral None record ed. Procedures None record ed. Surgeries None record ed. Imaging None record ed. Medication Orders None record ed. Patient TargetsNo targets recorded. Patient InstructionsNo instructions recorded. Reason for Referral None Reported. Procedures Surgical History Date Name Laterality Status Provider Name and Address Organization Details Recorded Time 3 OC- Physical completed Do Tracy Hammonds [facility] 12/22/2022 17:36:25 Imaging Results None recorded. Procedure Notes None recorded. Medical Equipment None Reported. Medications Name Sig Start Date Stop Date Status Note LastModified by Organization Details LastModified Time tetracycline 500 mg capsule active Not Available Not Available Not Available prednisone 10 mg tablet TAKE 1 TABLET BY MOUTH EVERY DAY WITH MEALS FOR 7 DAYS active Not Available Not Available No t Available cetirizine 10 mg tablet TAKE 1 TABLET.OLD BY MOUTH DAILY. ALTERNATES W PAUL active Not Available Not Available No t Available prednisone 20 mg tablet TAKE 2 TABLETS (40MG) BY MOUTH DAILY active Not Available Not Available Not Available metronidazol e 250 mg tablet TAKE 1 TABLET BY MOUTH 4 TIMES DAILY FOR 14 DAYS. active Not Available Not Available No t Available meclizine 12.5 mg tablet TAKE 1 TABLET BY MOUTH EVERY 8 HOURS active Not Available Not Available No t Available metronidazol e 500 mg tablet active Not Available Not Available Not Available tramadol 50 mg tablet TAKE 1 TABLET (50 MG) BY MOUTH EVERY 6 HOURS NEEDED FOR SEVERE PAIN SCALE 7-10 active Not Available Not Available N ot Available pantoprazole 40 mg tablet,delay ed release active Not Available Not Available N ot Available lidocaine 5 % topical patch active Not Available Not Available Not Available omeprazole 20 mg capsule,ok yed release TAKE 1 CAPSULE BY MOUTH TWICE A DAY FOR 2 WEEKS active Not Available Not Available No t Available ergocalcifer ol (vitamin D2) 1,250 mcg (50,000 unit) capsule TAKE 1 TABLET BY MOUTH ONCE A WEEK FOR 12 DOSES. active Not Available Not Available No t Available ibuprofen 600 mg tablet TAKE 1 TABLET BY MOUTH EVERY 8 HOURS NEEDED FOR PAIN active Not Available Not Available No t Available scopolamine 1 mg over 3 days transdermal patch APPLY 1 PATCH EVERY 72 HOURS active Not Available Not Available No t Available fluticasone propionate 50 mcg/actuatio n nasal spray,suspen destini INSTILL 2 SPRAYS IN EACH NOSTRIL ONCE A DAY active Not Available Not Available N ot Available doxycycline hyclate 100 mg tablet TAKE 1 TABLET BY MOUTH TWICE A DAY active Not Available Not Available No t Available Stomach Relief 262 mg/15 mL oral suspension active Not Available Not Available N ot Available cyclobenzapr ine 5 mg tablet TAKE 1 TABLET BY MOUTH 3 TIMES DAILY NEEDED FOR MUSCLE SPASMS (LOWER BACK PAIN) FOR UP TO 7 DAYS. active Not Available Not Available No t Available diclofenac 1 % topical gel APPLY 1 TUBE TOPICALLY 2 TIMES DAILY NEEDED (SEVERE LOWER BACK PAIN) FOR UP TO 90 DAYS. active Not Available Not Available No t Available Vitals None Recorded Social History None recorded. Functional Status None recorded. Mental Status None recorded. Family History Nothing Reported. Medical History No medical history recorded. Gynecological HistoryNo gynecological history recorded. Obstetrics History GPAL:G 0 P 0 0 0 0 Past Encounters Encounter ID Performer Location Encounter Start Date Encounter Closed Date Diagnosis/Indication Diagnosis SNOMED-CT Code Diagnosis ICD10 Code Diagnosis Note [id number] [address] [address] [place] [address] 07/19/2019 13:05:31 07/19/2019 14:06:46 [id number] [address] [address] [place] [address] 08/21/2017 19:54:48 08/21/2017 21:02:16 [id number] KELSI FRANCO MD [address] [place] [address] 12/22/2022 13:20:46 12/22/2022 19:00:35 History and physical examination, pre-employment [id number] Z02.1 Health Concerns Section Related Observation LastModified by Organization Detai ls LastModified Time None Recorded Concern Status LastModified by Organization Details LastModified Time None Recorded Advance Directives Directive None Recorded Payers Encounter Date Sequence Insurance Name Policy Number Policy Prakash Covered Member ID Prakash Member ID Guarantor Name 08/21/2017 1 [place] [facility] Dahiana E Amedzo [id number] Dahiana Amedzro 12/22/2022 DO NOT USE Dahiana Amedzro PAY AT TIME OF SERVICE PAY AT TIME OF SERVICE Dahiana Amedzro Notes Date Note Type Note Provider Name and Address Organization Details Recorded Time 12/22/2022 text/html PhysicalReported bypatient.source of patient informationpatient Patient presents for a physical for:Employment OccupationHome Health Aide KELSI FRANCO MD [address] [place], [place] [address], [address], [place] - [facility] 12/22/2022 19:00:22 OBGyn Episode No OBEpisode recorded.
== END 2025-02-19 15:05 | disposition home or self-care (01) ==
LOC: HO.HCS 13:52
PROVIDERS: Visit Provider Internal Medicine Cardiovascular Disease
DX: I10 Essential (primary) hypertension (principal)
CPT/HCPCS: 93010; 99213

== ENCOUNTER → 2025-02-19 13:51 | Outpatient (BNVA) | payer OTHER, SELFPAY | PROVIDERS: Visit Provider Internal Medicine Cardiovascular Disease | DX: I10 Essential (primary) hypertension (principal) | CPT/HCPCS: 93005 ==

== ENCOUNTER → 2025-03-04 11:35 | Outpatient (BNVA) | payer OTHER, SELFPAY | PROVIDERS: Visit Provider Internal Medicine Cardiovascular Disease ==